=== PATIENT | female | born 2000 | race Caucasian/White ===

== ENCOUNTER 2023-09-15 23:51 | Outpatient (CLI) | payer OTHER ==
[~2023-09-15] VITALS: Ht 162.6 cm; Wt 81.8 kg
[~2023-09-15 23:51] MED LIST: QUALITY CHOICE1 TA7
[2023-09-16 00:30] VITALS: BP 136/86; PULSE 75; TEMP 98
--- NOTE | 2023-09-16 00:35 | NUR ---
Pt arrives via wheelchair to unit, accompanied by spouse and staff. Shown to room and instructed to change into gown. RN at the bedside placing monitors on pt and obtaining history. Pt reports having ctx off and on since 4am yesterday that would come and go but got stronger a few hours after her appointment at [facility] on 09/15/23. She reports the ctx were 4-5 minutes apart at home before she came to the hospital. Pt denies any LOF or vaginal bleeding and reports good movement. POC discussed with pt and spouse and consent for cervical exam obtained. Questions asked and answered. Records released signed to obtain records from [facility].
[2023-09-16] MEDS ORDERED: LR 1,000 ML IV PRN (00:45)
[2023-09-16 01:00] VITALS: BP 116/72; PULSE 78
--- NOTE | 2023-09-16 01:00 | NUR ---
Interruption in the tracing at this time due to maternal position. Pt moved to sitting on the side of the bed for comfort during this tracing. RN at the bedside adjusting US monitor to obtain FHT
[2023-09-16 01:30] VITALS: BP 133/83; PULSE 97
[2023-09-16 02:00] VITALS: BP 115/72; PULSE 80
== END 2023-09-16 02:20 | disposition home or self-care (01) ==
LOC: LDRO 23:51 → LDR 09-16 00:05 → LDRO 09-16 02:20
DX: O26.893 Other specified pregnancy related conditions, third trimester (principal); E75.5 Other lipid storage disorders; Z3A.38 38 weeks gestation of pregnancy
CPT/HCPCS: OP